=== PATIENT | male | born 1950 | race Caucasian/White ===

== ENCOUNTER 2017-11-15 14:48 | Emergency (ER) | payer OTHER ==
[2017-11-15 14:53] VITALS: BP 146/76; BMI 25.0
[2017-11-15] MEDS ORDERED: ZOFRAN INJ 4 MG VIAL ONE (14:55)
[2017-11-15] MEDS ORDERED: TORADOL 30 MG VIAL ONE (14:55)
[2017-11-15] MEDS ORDERED: NS 1000 ML 1,000 ML ONE ×2 (14:55→16:25)
[2017-11-15] MEDS ORDERED: NS 1000 ML 1,000 ML IV ONE ×2 (15:07→16:36)
[2017-11-15] MEDS ORDERED: TORADOL 60 MG VIAL IVP ONE (15:14)
[2017-11-15] MEDS ORDERED: PHENERGAN INJ 25 MG IV ONE (15:14)
[2017-11-15] MEDS ORDERED: DILAUDID INJ IVP ONE (15:15)
[2017-11-15] MEDS ORDERED: DILAUDID INJ ONE (15:16)
--- NOTE | 2017-11-15 15:16 | DR.GENAD ---
HPI - PCP Primary Care Physician: CARLOS MANUEL - HPI Comment HPI Comment: RUNNING FEVER AND HAVING MILD DYSURIA. NO HEMATURIA. - Complaint/Symptoms Chief Complaint Doctors Comments: RIGHT FLANK AND ABDOMEN PAIN WITH N/V NOTED SINCE THIS AM. Chief Complaint:: PT C/O RT FLANK PAIN AND MID ABD PAIN. PT STATES HE HAS BEEN IN PAIN SINCE HE WOKE UP THIS AM AND PT STATES HE HASW BEEN HAVING A VIRUS, BUT NOW HE IS THINKING HE IS HAVING A KIDNEY STONE MOVE FOR WHICH HE HAS A HISTORY OF. PT HAS BEEN VOMITTING TODAY. - Nurses notes reviewed Nurses Notes Review: Yes - Source History Provided: Patient - Mode of Arrival Mode of Arrival: Ambulatory - Timing Onset of Chief Complaint: 11/14/17 Came on: Suddenly - Duration Duration: Constant Duration: Days - Severity Severity: Moderate PMH - PMH Past Medical History: Yes Past Medical History: Hypertension, Kidney Stones Past Surgical History: No - Family History History of Family Medical Conditions: No - Social History Does any household member use tobacco: No Alcohol Use: None Do you use any recreational Drugs:: No Lives With: Family Lives Where: Home - infectious screening In the last 2 months have you had wt loss of >10#?: NO Have you had fever, night sweats or hemotysis?: No Have you traveled outside the country in the last 6 months?: No Isolation: Standard ROS - Review of Systems Constitutional: No Symptoms Reported. negative: Chills, Fever, Weakness, Fatigue Eyes: No Symptoms Reported. negative: Eye Pain, Discharge ENTM: No Symptoms Reported Respiratoy: No Symptoms Reported Cardiovascular: No Symptoms Reported Gastrointestinal/Abdominal: No Symptoms Reported Genitourinary: No Symptoms Reported Neurological: No Symptoms Reported Musculoskeletal: Back Pain, Back Integumentary: No Symptoms Reported Hematologic/Lymphatic: No Symptoms Reported Endocrine: No Symptoms Reported All Other Systems: Reviewed and Negative PE - Vital Signs Vitals: Temperature 97.8 F Pulse Rate 78 Respiratory Rate 20 Blood Pressure 146/76 O2 Sat by Pulse Oximetry 98 - General Limitations: No Limitations General Appearance: Alert - Head Head Exam: Normal Inspection - Eyes Eye exam: Normal Appearance - ENT ENT Exam: Normal External Ear Exam External Ear Exam: Normal External Inspection TM/Canal Exam: Bilateral Normal Nose Exam: Normal Nose Exam Mouth Exam: Normal Inspection Throat Exam: Normal Inspection - Neck Neck Exam: Trachea Midline - Chest Chest Inspection: Symmetric Chest Wall Rise - Respiratory Respiratory Exam: Normal Lung Sounds Bilat Respiratory Exam: Bilateral Clear to Auscultation - Cardiovascular Cardiovascular Exam: Regular Rate, Normal Rhythm, Irregular Rhythm - Abdominal Exam Abdominal Exam: Normal Bowel Sounds, Soft. negative: Tenderness - Extremities Extremities Exam: Normal Inspection - Back Back Exam: (R) CVA Tenderness - Neurologic Neurological Exam: Alert, Oriented X3 - Psychiatric Psychiatric Exam: Normal Affect, Normal Mood - Skin Skin Exam: Normal Color MDM - Differential Diagnosis Differential Diagnosis: UTI, KIDNEY STONE, RT FLANK PAIN Course - Treatment Treatment: SEE ORDERS - Education/Counseling Education/Counseling: Patient, Education Educated On: Treatment, Diagnosis, Needs for Follow Up ROR - Labs Reviewed Laboratory Results Reviewed?: Yes Result Diagrams: 11/15/17 15:20 11/15/17 15:20 Laboratory: WBC 5.9 X10^3/uL (3.6-10.0) 11/15/17 15:20 RBC 4.83 X10^6/uL (4.7-6.0) 11/15/17 15:20 Hgb 14.3 g/dL (13.5-18.0) 11/15/17 15:20 Hct 41.7 % (42.0-54.0) L 11/15/17 15:20 MCV 86.4 fL (80.0-100.0) 11/15/17 15:20 MCH 29.6 pg (27.0-34.0) 11/15/17 15:20 MCHC 34.2 g/dL (33.0-35.0) 11/15/17 15:20 RDW 12.9 % (11.6-16.5) 11/15/17 15:20 Plt Count 161 X10^3/uL (150.0-450.0) 11/15/17 15:20 MPV 8.9 fL (7.4-11.0) 11/15/17 15:20 Neut % 73.2 % (42.0-75.0) 11/15/17 15:20 Lymph % 17.5 % (21.0-51.0) L 11/15/17 15:20 Morris % 9.0 % (0.0-13.0) 11/15/17 15:20 Eos % 0.1 % (0.9-2.9) L 11/15/17 15:20 Baso % 0.2 % (0.2-1.0) 11/15/17 15:20 Neut # 4.3 x10^3/uL (2.2-4.8) 11/15/17 15:20 Lymph # 1.0 X10^3/uL (1.3-2.9) L 11/15/17 15:20 Morris # 0.5 x10^3/uL (0.3-0.8) 11/15/17 15:20 Eos # 0.0 x10^3/uL (0.0-0.2) 11/15/17 15:20 Baso # 0.0 X10^3/uL (0.0-0.1) 11/15/17 15:20 Absolute Nucleated RBC 0.0 /100WBC 11/15/17 15:20 Sodium 140 mmol/L (136-145) 11/15/17 15:20 Corrected Sodium 141 mmol/L (136-145) 11/15/17 15:20 Potassium 3.9 mmol/L (3.5-5.1) 11/15/17 15:20 Chloride 105 mmol/L (98-107) 11/15/17 15:20 Carbon Dioxide 25.1 mmol/L (21-32) 11/15/17 15:20 BUN 25 mg/dL (7-18) H 11/15/17 15:20 Creatinine 1.36 mg/dL (0.70-1.30) H 11/15/17 15:20 Est GFR (MDRD) Af Amer > 60 (>60) 11/15/17 15:20 Est GFR (MDRD) Non-Af 56 (>60) L 11/15/17 15:20 Glucose 138 mg/dL (65-99) H 11/15/17 15:20 Calcium 7.9 mg/dL (8.5-10.1) L 11/15/17 15:20 Corrected Calcium 8.5 mg/dL (8.5-10.1) 11/15/17 15:20 Total Bilirubin 0.50 mg/dL (0.2-1.0) 11/15/17 15:20 AST 39 Units/L (15-37) H 11/15/17 15:20 ALT 44 Units/L (12-78) 11/15/17 15:20 Alkaline Phosphatase 62 Units/L (46-116) 11/15/17 15:20 Total Protein 6.6 g/dL (6.4-8.2) 11/15/17 15:20 Albumin 3.2 g/dL (3.4-5.0) L 11/15/17 15:20 Globulin 3.4 g/dL (2.5-4.5) 11/15/17 15:20 Albumin/Globulin Ratio 0.9 Ratio (1.1-2.1) L 11/15/17 15:20 Specimen Type Clean catch urine 11/15/17 16:37 Urine Color Yellow (YELLOW) 11/15/17 16:37 Urine Appearance Slightly hazy (CLEAR) 11/15/17 16:37 Urine pH 7.0 (5.0 - 8.0) 11/15/17 16:37 Ur Specific [place] 1.010 (1.000-1.030) 11/15/17 16:37 Urine Protein 2+ (NEGATIVE) 11/15/17 16:37 Urine Glucose (UA) 2+ (NEGATIVE) 11/15/17 16:37 Urine Ketones Negative (NEGATIVE) 11/15/17 16:37 Urine Occult Blood 5+ (NEGATIVE) 11/15/17 16:37 Urine Nitrite Negative (NEGATIVE) 11/15/17 16:37 Urine Bilirubin Negative (NEGATIVE) 11/15/17 16:37 Urine Urobilinogen Normal (NORMAL) 11/15/17 16:37 Ur Leukocyte Esterase 1+ (NEGATIVE) 11/15/17 16:37 Urine RBC Tntc /HPF (NEGATIVE) 11/15/17 16:37 Urine WBC Rare /HPF (NEGATIVE) 11/15/17 16:37 Ur Squamous Epith Cells Rare /HPF (NEGATIVE) 11/15/17 16:37 Amorphous Sediment Trace /HPF (NEGATIVE) 11/15/17 16:37 Urine Bacteria Negative /HPF (NEGATIVE) 11/15/17 16:37 Hyaline Casts Rare /LPF (NEGATIVE) 11/15/17 16:37 Ur Culture Indicated? No/not indicated 11/15/17 16:37 - XRAY XRAY Interpreted by: Radiologist XRAY Findings: REPORT DISCUSS WITH PATIENT. 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 - Discharge Plan Disposition: 01 HOME, SELF-CARE Condition: Stable Prescriptions: Ciprofloxacin HCl [CIPRO 500 MG TAB *] 500 mg PO Q12H #20 tab Ketorolac Tromethamine [Toradol Tab] 10 mg PO Q8H PRN #20 tab PRN Reason: Pain Ondansetron [Zofran ODT 8 mg] 8 mg PO Q8H PRN #12 tab PRN Reason: Nausea/Vomiting Tamsulosin HCl [Flomax] 0.4 mg PO DAILY #30 cap - Follow ups/Referrals Follow ups/Referrals: Elisabet Finn [Primary Care Provider] - 3 days POONAM PINEDA [CONSULTING PHYSICIAN] - 11/17/17 - Instructions Instructions: Kidney Stones, [id number], Hydronephrosis, Urinary Tract Infection, Adult Additional Instructions: RETURN TO ED IF WORSE
[2017-11-15 15:50] LABS: BASOPHILS % (AUTO) 0.2 % (0.2-1.0); EOSINOPHILS % (AUTO) 0.1 % (0.9-2.9); HEMATOCRIT 41.7 % (42.0-54.0); HEMOGLOBIN 14.3 g/dL (13.5-18.0); LYMPHOCYTES % (AUTO) 17.5 % (21.0-51.0); MEAN CORPUSCULAR HEMOGLOBIN 29.6 pg (27.0-34.0); MEAN CORPUSCULAR HGB CONC 34.2 g/dL (33.0-35.0); MEAN CORPUSCULAR VOLUME 86.4 fL (80.0-100.0); MEAN PLATELET VOLUME 8.9 fL (7.4-11.0); MONOCYTES # (AUTO) 0.5 x10^3/uL (0.3-0.8); NEUTROPHILS # (AUTO) 4.3 x10^3/uL (2.2-4.8); NEUTROPHILS % (AUTO) 73.2 % (42.0-75.0); PLATELET COUNT 161 X10^3/uL (150.0-450.0); RED BLOOD COUNT 4.83 X10^6/uL (4.7-6.0); RED CELL DISTRIBUTION WIDTH 12.9 % (11.6-16.5); WHITE BLOOD COUNT 5.9 X10^3/uL (3.6-10.0)
--- NOTE | 2017-11-15 15:59 | CT ---
CT ABDOMEN AND PELVIS WITHOUT CONTRAST CLINICAL HISTORY: 67-year-old male with right flank pain and mid abdominal pain. History of renal sto [place]. COMPARISON: None. TECHNIQUE: Multiple contiguous computed tomographic axial images of the abdomen and pelvis were obtai sydnee without the use of oral or intravenous contrast. Images were reformatted in the coronal and sagit jonah planes. FINDINGS: The lung bases demonstrate no evidence of focal air-space opacification, pleural effusion, pneumothor ax, or suspicious pulmonary nodules. Bibasilar subsegmental dependent atelectasis. enlarged with a t ortuous thoracic aorta Without pericardial effusion with significant calcific atherosclerotic cysts of the circumflex. Asymmetric geographic low attenuation within the right lobe of the liver as compared to the left with diffuse hepatic steatosis without biliary ductal dilatation. Spleen, pancreas and gallbladder are un remarkable. Adrenal glands are unremarkable. Mildly edematous/enlarged right kidney as compared to the left with scattered perinephric fluid and stranding without focal fluid collection. There is mild hydroureteron ephrosis secondary to a 3 mm partially obstructing stone at the right UVJ. Ureters follow a normal co urse to a well distended urinary bladder. Prostate is enlarged measuring 4.4 x 5.2 cm with central calcifications. Seminal vesicles and externa l genitalia are unremarkable. Fat containing left inguinal hernia with right inguinal hernia containi ng single knuckle of small bowel without evidence of incarceration, strangulation or obstruction. The appendix is normal in appearance. The bowel is without obstruction or inflammation and there is no free fluid or free air within the peritoneal cavity. There are no pathologically enlarged lymph n odes in the abdomen or pelvis. Severe calcified atherosclerotic disease of the abdominal aorta and its branches. Soft tissues are normal. The osseous structures are intact without fracture or malalignment. Multilevel degenerative disease o f the imaged spine most severe L2-L4. IMPRESSION: 1. Partially obstructing 3 mm right UVJ stone with subsequent mild hydroureteronephrosis and edematou s right kidney with mild perinephric stranding/scattered fluid. 2. Geographic asymmetric low attenuation within the right lobe of the liver with diffuse hepatic stea tosis. Correlate with serology. Most likely asymmetric fatty infiltration. Consider nonemergent outpa tient MR of the liver for further evaluation. 3. Bilateral inguinal hernias with a small knuckle of small bowel within the right inguinal hernia wi thout evidence of incarceration, strangulation or obstruction. Reported By:
[2017-11-15 16:14] LABS: ALANINE AMINOTRANSFERASE 44 Units/L (12-78); ALBUMIN 3.2 g/dL (3.4-5.0); ALKALINE PHOSPHATASE 62 Units/L (46-116); ASPARTATE AMINO TRANSFERASE 39 Units/L (15-37); BLOOD UREA NITROGEN 25 mg/dL (7-18); CALCIUM 7.9 mg/dL (8.5-10.1); CARBON DIOXIDE 25.1 mmol/L (21-32); CHLORIDE 105 mmol/L (98-107); COR CA(FOR HYPOALB) 8.5 mg/dL (8.5-10.1); COR NA(FOR HYPERGLY) 141 mmol/L (136-145); CREATININE 1.36 mg/dL (0.70-1.30); SODIUM 140 mmol/L (136-145); TOTAL PROTEIN 6.6 g/dL (6.4-8.2); eGFR BLACK RACES > 60 (>60); eGFR NON BLACK RACES 56 (>60)
[2017-11-15 16:44] LABS: BILIRUBIN,URINE NEGATIVE (NEGATIVE); BLOOD/HEMOGLOBIN,URINE 5+ (NEGATIVE); GLUCOSE, URINE 2+ (NEGATIVE); KETONES,URINE NEGATIVE (NEGATIVE); LEUKOCYTE ESTERASE ,URINE 1+ (NEGATIVE); NITRITES,URINE NEGATIVE (NEGATIVE); PROTEIN,URINE 2+ (NEGATIVE); UROBILINOGEN,URINE NORMAL (NORMAL)
[2017-11-15 17:09] LABS: APPEARANCE,URINE SLIGHTLY HAZY (CLEAR); BACTERIA,URINE NEGATIVE /HPF (NEGATIVE); COLOR,URINE YELLOW (YELLOW); RBC,URINE TNTC /HPF (NEGATIVE); SQUAMOUS EPITHELIAL CELL,UR RARE /HPF (NEGATIVE)
[2017-11-15 17:10] LABS: AMORPHOUS SEDIMENT,UR TRACE /HPF (NEGATIVE); HYALINE CASTS, URINE RARE /LPF (NEGATIVE)
[2017-11-15] MEDS ORDERED: CIPRO TAB 500 MG PO ONE ×2 (18:38→18:45)
[2017-11-15] MEDS ORDERED: ROCEPHIN VIAL 1 GM 1 GM in NS 100 ML IV + SPIKE MINIBAG* 100 ML IV ONE (18:38)
[2017-11-15] MEDS ORDERED: ROCEPHIN VIAL 1 GM ONE (18:45)
[2017-11-15] MEDS ORDERED: NS 100 ML IV 100 ML IV ONE (18:45)
== END 2017-11-15 19:11 | disposition home or self-care (01) ==
LOC: ER 15:04
DX: N20.0 Calculus of kidney (principal); N12 Tubulo-interstitial nephritis, not specified as acute or chronic; Q62.11 Congenital occlusion of ureteropelvic junction; R10.84 Generalized abdominal pain
CPT/HCPCS: 36415; 74176; 80053; 81001; 85025; 96365; 96367; 96374; 96375; 99282; 99283; A4222; J0696; J1885; J2405